=== PATIENT | female | born 1985 | race Two or more races ===

== ENCOUNTER 2023-12-25 23:32 | Emergency (ER) | payer MEDICAID, OTHER ==
[~2023-12-25] VITALS: Ht 167.6 cm; Wt 68.0 kg
[2023-12-26 01:25] LABS: PREGNANCY TEST URINE QUAL NEGATIVE (NEGATIVE)
[2023-12-26 02:31] LABS: AMPHETAMINE, URINE NEGATIVE (NEGATIVE); BARBITURATE, URINE NEGATIVE (NEGATIVE); BENZODIAZEPINE, URINE NEGATIVE (NEGATIVE); CANNABINOID, URINE POSITIVE (NEGATIVE); COCCAINE, URINE NEGATIVE (NEGATIVE); OPIATE, URINE NEGATIVE (NEGATIVE); PHENCYCLIDINE SCREEN,URINE NEGATIVE (NEGATIVE)
[2023-12-26 03:30] VITALS: BP 128/86; TEMP 98; O2SAT 100
== END 2023-12-26 03:31 | disposition home or self-care (01) ==
LOC: ER 23:34
DX: F12.10 Cannabis abuse, uncomplicated (principal); R42 Dizziness and giddiness; R00.2 Palpitations; I10 Essential (primary) hypertension; F32.A Depression, unspecified; Z60.2 Problems related to living alone
CPT/HCPCS: 84703-TC; 98960